=== PATIENT | male | born 1975 | race Caucasian/White ===

== ENCOUNTER 2018-02-07 13:30 | Emergency (ER) | payer OTHER ==
[~2018-02-07] VITALS: Ht 170.2 cm; Wt 83.9 kg
== END 2018-02-07 16:07 | disposition home or self-care (01) ==
LOC: ER 13:30
DX: K64.4 Residual hemorrhoidal skin tags (principal)

== ENCOUNTER 2018-03-17 13:15 | Emergency (ER) | payer OTHER ==
[~2018-03-17] VITALS: Ht 170.2 cm; Wt 86.2 kg
== END 2018-03-17 18:40 | disposition home or self-care (01) ==
LOC: ER 13:15
DX: J09.X2 Influenza due to identified novel influenza A virus with other respiratory manifestations (principal)

== ENCOUNTER 2018-06-11 16:44 | Emergency (ER) | payer OTHER ==
[~2018-06-11] VITALS: Ht 172.7 cm; Wt 90.7 kg
== END 2018-06-11 21:09 | disposition home or self-care (01) ==
LOC: ER 16:44
DX: R06.02 Shortness of breath (principal)